=== PATIENT | female | born 1960 | race Caucasian/White ===

== ENCOUNTER 2019-12-07 12:39 | Inpatient (IN) | payer MEDICAID, OTHER, SELFPAY ==
[~2019-12-07] VITALS: Ht 172.7 cm; Wt 74.0 kg
[2019-12-07] MEDS ORDERED: MORPHINE SULFATE 4 MG/ML, 1ML IV PRN (13:30)
[2019-12-07] MEDS ORDERED: ONDANSETRON 2MG/ML, 2ML IVPush ONE (13:30)
[2019-12-07] MEDS ORDERED: SODIUM CHLORIDE FLUSH 10ML SYR IVF ONE (13:30)
[2019-12-07] MEDS ORDERED: SODIUM CHLORIDE 0.9% 1,000ML IVBOLUS ONE (13:30)
[2019-12-07 13:49] LABS: MEAN CORPUSCULAR HEMOGLOBIN 27.7 pg (27.0-34.8); MEAN CORPUSCULAR HGB CONC 32.8 g/dL (32.4-35.8); MEAN CORPUSCULAR VOLUME 84.6 fL (80-100); MEAN PLATELET VOLUME 8.7 fL (7.4-10.4); PLATELET COUNT 239 x10^3/uL (130-400); RED BLOOD COUNT 4.67 x10^6/uL (3.82-5.3); RED CELL DISTRIBUTION WIDTH 13.7 % (9.6-15.2)
[2019-12-07] MEDS ORDERED: ONDANSETRON 2MG/ML, 2ML ONE (13:49)
[2019-12-07] MEDS ORDERED: MORPHINE SULFATE 4 MG/ML, 1ML ONE ×2 (13:49→15:30)
[2019-12-07] MEDS ORDERED: AMPICILLIN/SULBACTAM 3 GM in SODIUM CHLORIDE 0.9% 100 ML IV ONE (14:00)
[2019-12-07 14:01] LABS: ALANINE AMINOTRANSFERASE 26 U/L (12-78); ANION GAP 7 mmol/L (5-15); CALCIUM 9.3 mg/dL (8.5-10.1); CHLORIDE 101 mmol/L (98-107); CREATININE 0.88 mg/dL (0.55-1.02)
[2019-12-07 14:03] LABS: ALKALINE PHOSPHATASE 124 U/L (45-117); BILIRUBIN,TOTAL 0.6 mg/dL (0.2-1.0); TOTAL PROTEIN 8.2 g/dL (6.4-8.2)
[2019-12-07 14:29] LABS: BASOPHILS # (AUTO) 0.05 x10^3/uL (0-0.1); BASOPHILS % (AUTO) 0 % (0-1); EOSINOPHILS # (AUTO) 0.02 x10^3/uL (0-0.4); EOSINOPHILS % (AUTO) 0 % (1-7); LYMPHOCYTES # (AUTO) 1.43 x10^3/uL (1-3.4); LYMPHOCYTES % (AUTO) 7 % (22-44); MD SCAN; MONOCYTES # (AUTO) 1.19 x10^3/uL (0.2-0.8); MONOCYTES % (AUTO) 6 % (2-9); NEUTROPHILS # (AUTO) 19.04 x10^3/uL (1.8-6.8); NEUTROPHILS % (AUTO) 88 % (42-75)
[2019-12-07] MEDS ORDERED: NEOSPORIN OINT. PKT 1 PACKET ONE (14:38)
[2019-12-07] MEDS ORDERED: SITA1TBM4 PO (15:24)
[2019-12-07] MEDS ORDERED: DEXTROSE 4 GM TAB.CHEW PO PRN (15:30)
[2019-12-07] MEDS ORDERED: AMPICILLIN/SULBACTAM 1,500 MG in SODIUM CHLORIDE 0.9% 50 ML IV SCH (15:30)
[2019-12-07] MEDS ORDERED: DEXTROSE 50%, 50ML SYRINGE IVPush PRN (15:30)
[2019-12-07] MEDS ORDERED: DOCUSATE 100 MG CAPSULE PO PRN (15:30)
[2019-12-07] MEDS ORDERED: ACETAMINOPHEN 325 MG TABLET PO PRN (15:30)
[2019-12-07] MEDS ORDERED: ENALAPRILAT 1.25 MG/ML, 2ML IVPush PRN (15:30)
[2019-12-07] MEDS ORDERED: ONDANSETRON 2MG/ML, 2ML IVPush PRN (15:30)
[2019-12-07] MEDS ORDERED: ONDANSETRON ODT 4 MG PO PRN (15:30)
[2019-12-07] MEDS ORDERED: GLUCAGON 1 MG IM PRN (15:30)
[2019-12-07] MEDS ORDERED: VANCOMYCIN PER PHARMACY MC PRN (15:30)
[2019-12-07] MEDS ORDERED: SITA1TAB PO (15:58)
[2019-12-07] MEDS ORDERED: VANCOMYCIN 1,900 MG in SODIUM CHLORIDE 0.9% 250 ML IV ONE (16:00)
[2019-12-07] MEDS ORDERED: PHARMACOKINETIC MONITORING MC PRN (16:00)
[2019-12-07] MEDS: INSULIN LISPRO 100 UNITS/ML, PEN SQ-INSULIN SCH ×2 (17:55→20:46)
[2019-12-07] MEDS: KETOROLAC 30 MG/1 ML IV PRN (17:59)
[2019-12-07] MEDS: LACTATED RINGERS 1,000 ML IV SCH (18:00)
[2019-12-07] MEDS: ENOXAPARIN 40 MG/0.4 ML SQ SCH (18:00)
[2019-12-07 20:07] VITALS: BP 101/66
[2019-12-07] MEDS ORDERED: FAMOTIDINE 40 MG TABLET ONE (20:38)
[2019-12-07] MEDS: AMPICILLIN/SULBACTAM 1,500 MG in SODIUM CHLORIDE 0.9% 50 ML IV SCH (20:45)
[2019-12-07] MEDS: FAMOTIDINE 20 MG TABLET PO SCH (20:46)
[2019-12-07] MEDS: SODIUM CHLORIDE FLUSH 10ML SYR IVF SCH (20:47)
[2019-12-07] MEDS ORDERED: ZOLPIDEM 5MG TABLET PO PRN (21:00)
[2019-12-08 01:15] VITALS: BP 109/71
[2019-12-08] MEDS: LACTATED RINGERS 1,000 ML IV SCH ×2 (02:09→11:25)
[2019-12-08] MEDS: AMPICILLIN/SULBACTAM 1,500 MG in SODIUM CHLORIDE 0.9% 50 ML IV SCH ×4 (02:57→20:19)
[2019-12-08 05:24] LABS: BASOPHILS # (AUTO) 0.04 x10^3/uL (0-0.1); BASOPHILS % (AUTO) 0 % (0-1); EOSINOPHILS # (AUTO) 0.12 x10^3/uL (0-0.4); EOSINOPHILS % (AUTO) 1 % (1-7); LYMPHOCYTES % (AUTO) 10 % (22-44); MD NO; MEAN CORPUSCULAR HGB CONC 33.7 g/dL (32.4-35.8); MEAN CORPUSCULAR VOLUME 83.1 fL (80-100); MEAN PLATELET VOLUME 8.9 fL (7.4-10.4); MONOCYTES # (AUTO) 1.28 x10^3/uL (0.2-0.8); MONOCYTES % (AUTO) 7 % (2-9); NEUTROPHILS % (AUTO) 82 % (42-75); PLATELET COUNT 210 x10^3/uL (130-400); RED BLOOD COUNT 4.18 x10^6/uL (3.82-5.3); RED CELL DISTRIBUTION WIDTH 13.8 % (9.6-15.2)
[2019-12-08 05:29] LABS: ANION GAP 4 mmol/L (5-15); CALCIUM 9.1 mg/dL (8.5-10.1); CHLORIDE 104 mmol/L (98-107)
[2019-12-08 05:40] LABS: CREATININE 0.72 mg/dL (0.55-1.02)
[2019-12-08 07:32] VITALS: BP 98/63
[2019-12-08] MEDS: INSULIN LISPRO 100 UNITS/ML, PEN SQ-INSULIN SCH ×4 (08:33→20:20)
[2019-12-08] MEDS: SENNA/DOCUSATE TABLET PO SCH (08:34)
[2019-12-08] MEDS: SODIUM CHLORIDE FLUSH 10ML SYR IVF SCH ×2 (08:34→20:25)
[2019-12-08] MEDS: KETOROLAC 30 MG/1 ML IV PRN ×2 (08:38→20:22)
[2019-12-08] MEDS ORDERED: FAMOTIDINE 40 MG TABLET ONE ×2 (08:49→11:15)
[2019-12-08] MEDS: FAMOTIDINE 20 MG TABLET PO SCH ×2 (09:25→20:20)
[2019-12-08] MEDS ORDERED: VANCOMYCIN 1,500 MG in SODIUM CHLORIDE 0.9% 250 ML IV SCH (10:00)
[2019-12-08 14:18] VITALS: BP 130/74
[2019-12-08] MEDS: ENOXAPARIN 40 MG/0.4 ML SQ SCH (15:54)
[2019-12-08] MEDS ORDERED: MUPIROCIN OINT 2%, 1 GM APPL. TP SCH (18:00)
[2019-12-08] MEDS: MUPIROCIN OINT 2%, 22GM TP SCH (18:15)
[2019-12-08 19:16] VITALS: BP 121/78
[2019-12-09 00:44] VITALS: BP 114/81
[2019-12-09] MEDS: AMPICILLIN/SULBACTAM 1,500 MG in SODIUM CHLORIDE 0.9% 50 ML IV SCH ×2 (03:10→08:21)
[2019-12-09 05:54] LABS: ANION GAP 6 mmol/L (5-15); CALCIUM 8.9 mg/dL (8.5-10.1); CHLORIDE 106 mmol/L (98-107); CREATININE 0.66 mg/dL (0.55-1.02)
[2019-12-09 06:05] LABS: BASOPHILS # (AUTO) 0.03 x10^3/uL (0-0.1); BASOPHILS % (AUTO) 0 % (0-1); EOSINOPHILS # (AUTO) 0.16 x10^3/uL (0-0.4); EOSINOPHILS % (AUTO) 1 % (1-7); LYMPHOCYTES # (AUTO) 1.46 x10^3/uL (1-3.4); LYMPHOCYTES % (AUTO) 13 % (22-44); MD NO; MEAN CORPUSCULAR HEMOGLOBIN 28.1 pg (27.0-34.8); MEAN CORPUSCULAR HGB CONC 33.6 g/dL (32.4-35.8); MEAN CORPUSCULAR VOLUME 83.7 fL (80-100); MEAN PLATELET VOLUME 8.9 fL (7.4-10.4); MONOCYTES # (AUTO) 0.72 x10^3/uL (0.2-0.8); MONOCYTES % (AUTO) 6 % (2-9); NEUTROPHILS # (AUTO) 9.18 x10^3/uL (1.8-6.8); NEUTROPHILS % (AUTO) 79 % (42-75); PLATELET COUNT 200 x10^3/uL (130-400); RED BLOOD COUNT 4.03 x10^6/uL (3.82-5.3); RED CELL DISTRIBUTION WIDTH 13.7 % (9.6-15.2)
[2019-12-09] MEDS: INSULIN LISPRO 100 UNITS/ML, PEN SQ-INSULIN SCH ×4 (07:00→21:42)
[2019-12-09] MEDS ORDERED: FAMOTIDINE 40 MG TABLET ONE ×2 (07:52→21:00)
[2019-12-09 08:00] VITALS: BP 127/76
[2019-12-09] MEDS: KETOROLAC 30 MG/1 ML IV PRN (08:21)
[2019-12-09] MEDS: MUPIROCIN OINT 2%, 22GM TP SCH ×2 (08:21→18:26)
[2019-12-09] MEDS: SODIUM CHLORIDE FLUSH 10ML SYR IVF SCH ×2 (08:22→21:21)
[2019-12-09] MEDS: SENNA/DOCUSATE TABLET PO SCH (08:22)
[2019-12-09] MEDS: FAMOTIDINE 20 MG TABLET PO SCH ×2 (08:22→21:00)
[2019-12-09 15:24] VITALS: BP 114/76
[2019-12-09] MEDS: ENOXAPARIN 40 MG/0.4 ML SQ SCH (15:30)
[2019-12-09] MEDS: CEPHALEXIN 500 MG CAPSULE PO SCH ×2 (17:00→21:21)
[2019-12-09 21:01] VITALS: BP 125/74
[2019-12-09] MEDS: HYDROcodone/APAP 5/325 TABLET PO PRN (21:21)
[2019-12-10 00:50] VITALS: BP 129/80
[2019-12-10] MEDS: CEPHALEXIN 500 MG CAPSULE PO SCH ×2 (05:35→12:29)
[2019-12-10] MEDS: MUPIROCIN OINT 2%, 22GM TP SCH ×2 (05:35→17:44)
[2019-12-10] MEDS: INSULIN LISPRO 100 UNITS/ML, PEN SQ-INSULIN SCH ×4 (07:00→20:22)
[2019-12-10] MEDS ORDERED: FAMOTIDINE 40 MG TABLET ONE (07:45)
[2019-12-10] MEDS: HYDROcodone/APAP 5/325 TABLET PO PRN ×3 (07:48→20:21)
[2019-12-10] MEDS: SENNA/DOCUSATE TABLET PO SCH (07:49)
[2019-12-10] MEDS: FAMOTIDINE 20 MG TABLET PO SCH ×2 (07:49→20:21)
[2019-12-10] MEDS: SODIUM CHLORIDE FLUSH 10ML SYR IVF SCH ×2 (07:50→20:23)
[2019-12-10 07:56] VITALS: BP 146/73
[2019-12-10 13:35] LABS: HCT (SEDRATE) 34.8 % (34.6-47.8)
[2019-12-10 13:37] LABS: BASOPHILS % (AUTO) 0 % (0-1); EOSINOPHILS % (AUTO) 2 % (1-7); LYMPHOCYTES # (AUTO) 1.48 x10^3/uL (1-3.4); LYMPHOCYTES % (AUTO) 14 % (22-44); MD NO; MEAN CORPUSCULAR HEMOGLOBIN 27.8 pg (27.0-34.8); MEAN CORPUSCULAR HGB CONC 33.3 g/dL (32.4-35.8); MEAN CORPUSCULAR VOLUME 83.6 fL (80-100); MEAN PLATELET VOLUME 8.8 fL (7.4-10.4); MONOCYTES # (AUTO) 0.54 x10^3/uL (0.2-0.8); MONOCYTES % (AUTO) 5 % (2-9); NEUTROPHILS # (AUTO) 8.29 x10^3/uL (1.8-6.8); NEUTROPHILS % (AUTO) 79 % (42-75); PLATELET COUNT 272 x10^3/uL (130-400); RED BLOOD COUNT 4.07 x10^6/uL (3.82-5.3); RED CELL DISTRIBUTION WIDTH 13.5 % (9.6-15.2)
[2019-12-10 13:41] LABS: ALANINE AMINOTRANSFERASE 40 U/L (12-78); ALBUMIN 2.3 g/dL (3.4-5.0); ANION GAP 6 mmol/L (5-15); CALCIUM 9.1 mg/dL (8.5-10.1); CHLORIDE 105 mmol/L (98-107); CREATININE 0.73 mg/dL (0.55-1.02)
[2019-12-10 13:47] LABS: ALKALINE PHOSPHATASE 149 U/L (45-117); BILIRUBIN,TOTAL 0.3 mg/dL (0.2-1.0); TOTAL PROTEIN 7.7 g/dL (6.4-8.2)
[2019-12-10 14:00] VITALS: BP 116/71
[2019-12-10] MEDS ORDERED: GADOTERATE 7.5 MMOL/15 ML SYR ONE (14:57)
[2019-12-10] MEDS: ENOXAPARIN 40 MG/0.4 ML SQ SCH (15:07)
[2019-12-10] MEDS: CEFTRIAXONE PMX 2GM/50ML 50 ML IV SCH (15:07)
[2019-12-10 19:20] VITALS: BP 149/83
[2019-12-11] MEDS: HYDROcodone/APAP 5/325 TABLET PO PRN ×2 (00:38→07:42)
[2019-12-11 01:55] VITALS: BP 168/86
[2019-12-11] MEDS: MUPIROCIN OINT 2%, 22GM TP SCH (05:58)
[2019-12-11] MEDS: INSULIN LISPRO 100 UNITS/ML, PEN SQ-INSULIN SCH ×4 (07:00→22:02)
[2019-12-11 07:32] VITALS: BP 124/76
[2019-12-11] MEDS: SENNA/DOCUSATE TABLET PO SCH (07:41)
[2019-12-11] MEDS: FAMOTIDINE 20 MG TABLET PO SCH ×2 (07:41→22:00)
[2019-12-11 07:42] LABS: MEAN CORPUSCULAR HEMOGLOBIN 27.6 pg (27.0-34.8); MEAN CORPUSCULAR HGB CONC 32.6 g/dL (32.4-35.8); MEAN CORPUSCULAR VOLUME 84.6 fL (80-100); MEAN PLATELET VOLUME 8.3 fL (7.4-10.4); PLATELET COUNT 322 x10^3/uL (130-400); RED BLOOD COUNT 4.55 x10^6/uL (3.82-5.3); RED CELL DISTRIBUTION WIDTH 13.8 % (9.6-15.2)
[2019-12-11] MEDS: SODIUM CHLORIDE FLUSH 10ML SYR IVF SCH ×2 (07:42→22:15)
[2019-12-11 08:00] LABS: CHLORIDE 103 mmol/L (98-107)
[2019-12-11 08:04] LABS: ANION GAP 5 mmol/L (5-15); CALCIUM 9.4 mg/dL (8.5-10.1); CREATININE 0.69 mg/dL (0.55-1.02)
[2019-12-11 08:33] LABS: BASOPHILS # (AUTO) 0.08 x10^3/uL (0-0.1); BASOPHILS % (AUTO) 1 % (0-1); EOSINOPHILS # (AUTO) 0.24 x10^3/uL (0-0.4); EOSINOPHILS % (AUTO) 2 % (1-7); LYMPHOCYTES # (AUTO) 1.88 x10^3/uL (1-3.4); LYMPHOCYTES % (AUTO) 14 % (22-44); MD SCAN; MONOCYTES # (AUTO) 0.99 x10^3/uL (0.2-0.8); MONOCYTES % (AUTO) 8 % (2-9); NEUTROPHILS # (AUTO) 10.01 x10^3/uL (1.8-6.8); NEUTROPHILS % (AUTO) 76 % (42-75)
[2019-12-11] MEDS: CEFTRIAXONE PMX 2GM/50ML 50 ML IV SCH (13:05)
[2019-12-11] MEDS: KETOROLAC 30 MG/1 ML IV PRN ×2 (14:03→22:15)
[2019-12-11 15:10] VITALS: BP 120/74
[2019-12-11] MEDS: ENOXAPARIN 40 MG/0.4 ML SQ SCH (15:17)
[2019-12-11 18:58] VITALS: BP 121/78
[2019-12-12 00:51] VITALS: BP 122/78
[2019-12-12 04:42] LABS: ANION GAP 5 mmol/L (5-15); BASOPHILS # (AUTO) 0.05 x10^3/uL (0-0.1); BASOPHILS % (AUTO) 0 % (0-1); CALCIUM 9.6 mg/dL (8.5-10.1); CHLORIDE 104 mmol/L (98-107); CREATININE 0.76 mg/dL (0.55-1.02); EOSINOPHILS # (AUTO) 0.27 x10^3/uL (0-0.4); EOSINOPHILS % (AUTO) 2 % (1-7); LYMPHOCYTES # (AUTO) 2.08 x10^3/uL (1-3.4); LYMPHOCYTES % (AUTO) 16 % (22-44); MD NO; MEAN CORPUSCULAR HEMOGLOBIN 27.6 pg (27.0-34.8); MEAN CORPUSCULAR VOLUME 83.7 fL (80-100); MEAN PLATELET VOLUME 8.7 fL (7.4-10.4); MONOCYTES % (AUTO) 8 % (2-9); NEUTROPHILS # (AUTO) 9.98 x10^3/uL (1.8-6.8); NEUTROPHILS % (AUTO) 75 % (42-75); PLATELET COUNT 311 x10^3/uL (130-400); RED BLOOD COUNT 4.45 x10^6/uL (3.82-5.3); RED CELL DISTRIBUTION WIDTH 13.3 % (9.6-15.2)
[2019-12-12] MEDS: INSULIN LISPRO 100 UNITS/ML, PEN SQ-INSULIN SCH ×4 (08:07→21:02)
[2019-12-12] MEDS: SENNA/DOCUSATE TABLET PO SCH (08:07)
[2019-12-12] MEDS: KETOROLAC 30 MG/1 ML IV PRN (08:07)
[2019-12-12] MEDS: LORazepam 1MG TABLET PO PRN (08:07)
[2019-12-12] MEDS: SODIUM CHLORIDE FLUSH 10ML SYR IVF SCH ×2 (08:08→21:01)
[2019-12-12] MEDS: FAMOTIDINE 20 MG TABLET PO SCH ×2 (08:09→21:02)
[2019-12-12 08:25] VITALS: BP 115/74
[2019-12-12] MEDS: SULFAMETH./TRIMETHOPRIM DS 800MG/160MG TABLET PO SCH ×2 (11:18→21:02)
[2019-12-12] MEDS: CEFTRIAXONE PMX 2GM/50ML 50 ML IV SCH (12:37)
[2019-12-12 13:26] VITALS: BP 116/72
[2019-12-12] MEDS: ENOXAPARIN 40 MG/0.4 ML SQ SCH (15:43)
[2019-12-12 19:59] VITALS: BP 124/77
[2019-12-12] MEDS ORDERED: IBUPROFEN 600 MG TABLET PO PRN (21:00)
[2019-12-13 00:51] VITALS: BP 121/76
[2019-12-13] MEDS: LORazepam 1MG TABLET PO PRN ×2 (01:16→12:59)
[2019-12-13 05:47] LABS: MEAN CORPUSCULAR HEMOGLOBIN 27.6 pg (27.0-34.8); MEAN CORPUSCULAR HGB CONC 33.4 g/dL (32.4-35.8); MEAN CORPUSCULAR VOLUME 82.7 fL (80-100); MEAN PLATELET VOLUME 8.3 fL (7.4-10.4); PLATELET COUNT 356 x10^3/uL (130-400); RED BLOOD COUNT 4.56 x10^6/uL (3.82-5.3); RED CELL DISTRIBUTION WIDTH 13.6 % (9.6-15.2)
[2019-12-13 05:51] LABS: CALCIUM 9.5 mg/dL (8.5-10.1); CHLORIDE 104 mmol/L (98-107)
[2019-12-13 05:55] LABS: ANION GAP 5 mmol/L (5-15); CREATININE 0.81 mg/dL (0.55-1.02)
[2019-12-13 06:08] LABS: BASOPHILS # (AUTO) 0.08 x10^3/uL (0-0.1); BASOPHILS % (AUTO) 1 % (0-1); EOSINOPHILS # (AUTO) 0.35 x10^3/uL (0-0.4); EOSINOPHILS % (AUTO) 2 % (1-7); LYMPHOCYTES # (AUTO) 2.36 x10^3/uL (1-3.4); LYMPHOCYTES % (AUTO) 15 % (22-44); MD SCAN; MONOCYTES # (AUTO) 1.11 x10^3/uL (0.2-0.8); MONOCYTES % (AUTO) 7 % (2-9); NEUTROPHILS # (AUTO) 12.24 x10^3/uL (1.8-6.8); NEUTROPHILS % (AUTO) 76 % (42-75)
[2019-12-13] MEDS: INSULIN LISPRO 100 UNITS/ML, PEN SQ-INSULIN SCH ×4 (07:00→20:17)
[2019-12-13 08:09] VITALS: BP 123/79
[2019-12-13] MEDS: SULFAMETH./TRIMETHOPRIM DS 800MG/160MG TABLET PO SCH ×2 (08:34→20:17)
[2019-12-13] MEDS: SODIUM CHLORIDE FLUSH 10ML SYR IVF SCH ×2 (08:35→20:18)
[2019-12-13] MEDS: FAMOTIDINE 20 MG TABLET PO SCH ×2 (08:35→20:17)
[2019-12-13] MEDS: SENNA/DOCUSATE TABLET PO SCH (08:35)
[2019-12-13 09:16] LABS: HCT (SEDRATE) 37.7 % (34.6-47.8)
[2019-12-13 12:38] VITALS: BP 123/78
[2019-12-13] MEDS: CEFTRIAXONE PMX 2GM/50ML 50 ML IV SCH (13:00)
[2019-12-13] MEDS: ENOXAPARIN 40 MG/0.4 ML SQ SCH (15:36)
[2019-12-13 16:16] LABS: MICROSCOPIC NOT IND
[2019-12-13 19:20] VITALS: BP 121/76
[2019-12-14 00:26] VITALS: BP 127/75
[2019-12-14 06:35] LABS: BASOPHILS # (AUTO) 0.07 x10^3/uL (0-0.1); BASOPHILS % (AUTO) 1 % (0-1); EOSINOPHILS % (AUTO) 2 % (1-7); LYMPHOCYTES # (AUTO) 2.12 x10^3/uL (1-3.4); LYMPHOCYTES % (AUTO) 15 % (22-44); MD NO; MEAN CORPUSCULAR HEMOGLOBIN 27.9 pg (27.0-34.8); MEAN CORPUSCULAR HGB CONC 33.7 g/dL (32.4-35.8); MEAN CORPUSCULAR VOLUME 82.9 fL (80-100); MEAN PLATELET VOLUME 8.5 fL (7.4-10.4); MONOCYTES # (AUTO) 1.05 x10^3/uL (0.2-0.8); MONOCYTES % (AUTO) 8 % (2-9); NEUTROPHILS # (AUTO) 10.46 x10^3/uL (1.8-6.8); NEUTROPHILS % (AUTO) 75 % (42-75); PLATELET COUNT 348 x10^3/uL (130-400); RED BLOOD COUNT 4.31 x10^6/uL (3.82-5.3); RED CELL DISTRIBUTION WIDTH 13.2 % (9.6-15.2)
[2019-12-14 06:41] LABS: ALBUMIN 2.5 g/dL (3.4-5.0); ANION GAP 4 mmol/L (5-15); CALCIUM 9.2 mg/dL (8.5-10.1); CHLORIDE 103 mmol/L (98-107)
[2019-12-14 06:44] LABS: ALANINE AMINOTRANSFERASE 36 U/L (12-78); ALKALINE PHOSPHATASE 144 U/L (45-117); BILIRUBIN,TOTAL 0.3 mg/dL (0.2-1.0); CREATININE 0.82 mg/dL (0.55-1.02); TOTAL PROTEIN 8.5 g/dL (6.4-8.2)
[2019-12-14] MEDS: INSULIN LISPRO 100 UNITS/ML, PEN SQ-INSULIN SCH ×4 (07:00→20:07)
[2019-12-14 07:12] VITALS: BP 129/76
[2019-12-14] MEDS: SENNA/DOCUSATE TABLET PO SCH (08:25)
[2019-12-14] MEDS: FAMOTIDINE 20 MG TABLET PO SCH ×2 (08:26→20:05)
[2019-12-14] MEDS: SULFAMETH./TRIMETHOPRIM DS 800MG/160MG TABLET PO SCH ×2 (08:26→20:06)
[2019-12-14] MEDS: LORazepam 1MG TABLET PO PRN (08:30)
[2019-12-14] MEDS: SODIUM CHLORIDE FLUSH 10ML SYR IVF SCH ×2 (09:00→20:08)
[2019-12-14] MEDS: GABAPENTIN 100 MG CAPSULE PO SCH ×2 (11:06→20:06)
[2019-12-14] MEDS: CEFTRIAXONE PMX 2GM/50ML 50 ML IV SCH (13:22)
[2019-12-14 14:05] VITALS: BP 117/75
[2019-12-14] MEDS: ENOXAPARIN 40 MG/0.4 ML SQ SCH (17:30)
[2019-12-14 18:49] VITALS: BP 103/74
[2019-12-15 00:42] VITALS: BP 145/75
[2019-12-15] MEDS: LORazepam 1MG TABLET PO PRN ×2 (05:50→20:45)
[2019-12-15] MEDS: IBUPROFEN 600 MG TABLET PO PRN ×2 (05:50→13:03)
[2019-12-15 06:08] LABS: HCT (SEDRATE) 36.5 % (34.6-47.8)
[2019-12-15 06:57] VITALS: BP 132/77
[2019-12-15] MEDS: INSULIN LISPRO 100 UNITS/ML, PEN SQ-INSULIN SCH ×4 (07:00→20:46)
[2019-12-15] MEDS: GABAPENTIN 100 MG CAPSULE PO SCH ×2 (08:00→20:45)
[2019-12-15] MEDS: FAMOTIDINE 20 MG TABLET PO SCH ×2 (08:00→20:45)
[2019-12-15] MEDS: SULFAMETH./TRIMETHOPRIM DS 800MG/160MG TABLET PO SCH ×2 (08:01→20:45)
[2019-12-15] MEDS: SENNA/DOCUSATE TABLET PO SCH (08:02)
[2019-12-15] MEDS: SODIUM CHLORIDE FLUSH 10ML SYR IVF SCH ×2 (08:31→20:44)
[2019-12-15 08:32] LABS: BASOPHILS # (AUTO) 0.05 x10^3/uL (0-0.1); BASOPHILS % (AUTO) 1 % (0-1); EOSINOPHILS # (AUTO) 0.19 x10^3/uL (0-0.4); EOSINOPHILS % (AUTO) 2 % (1-7); LYMPHOCYTES # (AUTO) 1.93 x10^3/uL (1-3.4); LYMPHOCYTES % (AUTO) 16 % (22-44); MD NO; MEAN CORPUSCULAR HEMOGLOBIN 27.4 pg (27.0-34.8); MEAN CORPUSCULAR HGB CONC 32.8 g/dL (32.4-35.8); MEAN CORPUSCULAR VOLUME 83.7 fL (80-100); MEAN PLATELET VOLUME 8.5 fL (7.4-10.4); MONOCYTES # (AUTO) 0.96 x10^3/uL (0.2-0.8); MONOCYTES % (AUTO) 8 % (2-9); NEUTROPHILS # (AUTO) 8.66 x10^3/uL (1.8-6.8); NEUTROPHILS % (AUTO) 74 % (42-75); PLATELET COUNT 366 x10^3/uL (130-400); RED BLOOD COUNT 4.41 x10^6/uL (3.82-5.3); RED CELL DISTRIBUTION WIDTH 13.6 % (9.6-15.2)
[2019-12-15] MEDS ORDERED: GADOTERATE 7.5 MMOL/15 ML SYR ONE (12:23)
[2019-12-15] MEDS: CEFTRIAXONE PMX 2GM/50ML 50 ML IV SCH (13:09)
[2019-12-15 13:15] VITALS: BP 127/83
[2019-12-15] MEDS ORDERED: TRAM50TA2 PO (14:30)
[2019-12-15] MEDS ORDERED: Sulfameth./Trimethoprim Ds PO (14:30)
[2019-12-15] MEDS ORDERED: INSU100I11 SQ-INSULIN (14:48)
[2019-12-15] MEDS ORDERED: GABA-826 PO (14:48)
[2019-12-15] MEDS: ENOXAPARIN 40 MG/0.4 ML SQ SCH (17:54)
[2019-12-15 21:30] VITALS: BP 120/74
[2019-12-16 01:54] VITALS: BP 129/68
[2019-12-16] MEDS: INSULIN LISPRO 100 UNITS/ML, PEN SQ-INSULIN SCH ×2 (07:00→11:23)
[2019-12-16 07:53] VITALS: BP 116/74
[2019-12-16] MEDS: IBUPROFEN 600 MG TABLET PO PRN (08:01)
[2019-12-16] MEDS: SULFAMETH./TRIMETHOPRIM DS 800MG/160MG TABLET PO SCH (08:01)
[2019-12-16] MEDS: SODIUM CHLORIDE FLUSH 10ML SYR IVF SCH (08:01)
[2019-12-16] MEDS: GABAPENTIN 100 MG CAPSULE PO SCH (08:01)
[2019-12-16] MEDS: FAMOTIDINE 20 MG TABLET PO SCH (08:01)
[2019-12-16] MEDS: SENNA/DOCUSATE TABLET PO SCH (08:01)
[2019-12-16] MEDS ORDERED: KETOROLAC 30 MG/1 ML IVPush ONE (09:30)
[2019-12-16] MEDS: LORazepam 1MG TABLET PO PRN (11:09)
[2019-12-16] MEDS ORDERED: CEFD300C37 PO (11:32)
[2019-12-16] MEDS ORDERED: Sulfameth./Trimethoprim Ds PO (11:33)
[2019-12-16] MEDS: CEFTRIAXONE PMX 2GM/50ML 50 ML IV SCH (11:38)
[2019-12-16 14:23] VITALS: BP 120/76
== END 2019-12-16 15:25 | disposition home or self-care (01) | DRG 872 ==
LOC: ED 14:25 → EDIP 14:26 → ED 14:38 → UNDOADMIN 15:10 → EDIP 15:10 → SUATTDRO 15:10 → 3N 16:30 → DCLOUNGE 12-16 15:14
PROVIDERS: ADMIT Hospitalist; ATTEND Internal Medicine
DX: A41.9 Sepsis, unspecified organism (principal); F33.1 Major depressive disorder, recurrent, moderate; L03.115 Cellulitis of right lower limb; E04.2 Nontoxic multinodular goiter; F41.9 Anxiety disorder, unspecified; G47.00 Insomnia, unspecified; E11.65 Type 2 diabetes mellitus with hyperglycemia; S60.519A Abrasion of unspecified hand, initial encounter; B95.5 Unspecified streptococcus as the cause of diseases classified elsewhere; S80.219A Abrasion, unspecified knee, initial encounter; E11.42 Type 2 diabetes mellitus with diabetic polyneuropathy; W18.39XA Other fall on same level, initial encounter; Z79.4 Long term (current) use of insulin; Z80.3 Family history of malignant neoplasm of breast; Z82.49 Family history of ischemic heart disease and other diseases of the circulatory system; Y93.89 Activity, other specified; Y92.89 Other specified places as the place of occurrence of the external cause; Y99.8 Other external cause status; Z90.49 Acquired absence of other specified parts of digestive tract
CPT/HCPCS: 36415; 71045; 80048; 80053; 81003; 82962; 83036; 83605; 84443; 85025; 85651; 86140; 87040; 87070; 87147; 87205; 93005; 93922; 96365; 96375; 99285; G0378; J0295; J0696; J1650; J1885; J2405; J3370; A9575; J1815; J2270; J7030; J7050; J7120

== ENCOUNTER 2020-09-30 15:32 | Emergency (ER) | payer MEDICAID ==
[~2020-09-30] VITALS: Ht 174 cm; Wt 75.7 kg
[~2020-09-30 15:32] MED LIST: CEFD300C37 PO; GABA-826 PO; INSU100I11 SQ-INSULIN; SITA1TAB PO; SITA1TBM4 PO; Sulfameth./Trimethoprim Ds PO; TRAM50TA2 PO
--- NOTE | 2020-09-30 19:53 | NUR ---
ENGINEER FIRST ASSISTANT AT BEDSIDE FOR LAB DRAW. PIV PLACEMENT ATTEMPTED X2 WITHOUT SUCCESS.
[2020-09-30] MEDS ORDERED: AMPICILLIN/SULBACTAM 3 GM in SODIUM CHLORIDE 0.9% 100 ML IV ONE (20:00)
[2020-09-30] MEDS ORDERED: morphine SULFATE 10 MG/ML, 1ML IV ONE (20:00)
[2020-09-30] MEDS ORDERED: ONDANSETRON 2MG/ML, 2ML IVPush ONE (20:00)
[2020-09-30 20:06] LABS: BASOPHILS % (AUTO) 1 % (0-1); EOSINOPHILS % (AUTO) 2 % (1-7); LYMPHOCYTES % (AUTO) 16 % (22-44); MEAN CORPUSCULAR HEMOGLOBIN 28.7 pg (27.0-34.8); MEAN CORPUSCULAR HGB CONC 33.5 g/dL (32.4-35.8); MEAN PLATELET VOLUME 8.5 fL (7.4-10.4); MONOCYTES % (AUTO) 7 % (2-9); NEUTROPHILS % (AUTO) 75 % (42-75); PLATELET COUNT 277 x10^3/uL (130-400); RED BLOOD COUNT 4.77 x10^6/uL (3.82-5.3)
[2020-09-30 20:10] LABS: MD NO
[2020-09-30 20:20] LABS: ALANINE AMINOTRANSFERASE 35 U/L (12-78); ALBUMIN 3.5 g/dL (3.4-5.0); ANION GAP 4 mmol/L (5-15); CHLORIDE 104 mmol/L (98-107); CREATININE 0.75 mg/dL (0.55-1.02)
[2020-09-30 20:22] LABS: ALKALINE PHOSPHATASE 107 U/L (45-117); BILIRUBIN,TOTAL 0.3 mg/dL (0.2-1.0); TOTAL PROTEIN 8.1 g/dL (6.4-8.2)
[2020-09-30] MEDS ORDERED: MORPHINE SULFATE 4 MG/ML, 1ML ONE (20:24)
[2020-09-30] MEDS ORDERED: ONDANSETRON 2MG/ML, 2ML ONE (20:24)
--- NOTE | 2020-09-30 20:34 | NUR ---
PIV PLACED BY TASK RN. 2ND SET BLOOD CX COLLECTED AND SENT TO LAB. MEDS ADMIN PER JUL. 2 SETS BLOOD CX DRAWN PRIOR TO ADMIN. PT RESTING ON [facility]. DEN[place]. PT CONNECTED TO MONITORING.
--- NOTE | 2020-09-30 20:44 | NUR ---
ALL RESULTS ARE BACK AT THIS TIME. CHART UP FOR RECHECK.
--- NOTE | 2020-09-30 21:35 | NUR ---
ERMD AT BEDSIDE TO UPDATE PT ON POC.
[2020-09-30] MEDS ORDERED: NEOSPORIN OINT. PKT 1 PACKET ONE ×2 (22:01→22:30)
[2020-09-30 22:39] VITALS: BP 140/70
== END 2020-09-30 22:42 | disposition home or self-care (01) ==
LOC: ED 16:02
DX: S80.212A Abrasion, left knee, initial encounter (principal); L03.116 Cellulitis of left lower limb; E11.40 Type 2 diabetes mellitus with diabetic neuropathy, unspecified; X58.XXXA Exposure to other specified factors, initial encounter; Y93.89 Activity, other specified; Y92.89 Other specified places as the place of occurrence of the external cause; Y99.8 Other external cause status
CPT/HCPCS: 36415; 73590; 73610; 73630; 80053; 83605; 84145; 85025; 87040; 96365; 96375; 99284; J0295; J2270; J2405

== ENCOUNTER 2020-12-09 21:05 | Emergency (ER) | payer MEDICAID ==
[~2020-12-09] VITALS: Ht 175.3 cm; Wt 75.0 kg
[2020-12-09 21:07] VITALS: BP 103/70
[2020-12-09] MEDS ORDERED: LIDODERM 5% PATCH TD ONE ×2 (21:30→21:36)
[2020-12-09] MEDS ORDERED: DIAZEPAM 5 MG TABLET PO ONE (21:30)
[2020-12-09] MEDS ORDERED: KETOROLAC 30 MG/1 ML IM ONE (21:30)
[2020-12-09] MEDS ORDERED: KETOROLAC 30 MG/1 ML ONE (21:36)
[2020-12-09] MEDS ORDERED: DIAZEPAM 5 MG TABLET ONE (21:36)
--- NOTE | 2020-12-09 21:44 | NUR ---
meds admin as per jul. elmiraa at bedside for pelvic.
[2020-12-09] MEDS ORDERED: CEFTRIAXONE 1,000 MG IM ONE (22:00)
[2020-12-09] MEDS ORDERED: DOXYCYCLINE 100MG TABLET PO ONE (22:00)
[2020-12-09 22:08] LABS: CLUE CELLS NONE SEEN (NONE SEEN); WET PREP WBCS FEW (FEW)
[2020-12-09] MEDS ORDERED: CEFTRIAXONE 1,000 MG ONE (22:09)
[2020-12-09] MEDS ORDERED: DOXYCYCLINE 100MG TABLET ONE (22:09)
--- NOTE | 2020-12-09 22:17 | NUR ---
MEDS ADMIN PER JUL. WARM BLANKET PROVIDED.
[2020-12-09 22:20] LABS: HCG UR SG 1.039 (1.003-1.030); MICROSCOPIC AUTO
[2020-12-09] MEDS ORDERED: FOSFOMYCIN 3 GM PACKET PO ONE (22:40)
--- NOTE | 2020-12-09 22:40 | NUR ---
ALL RESULTS ARE BACK AT THIS TIME. CHART UP FOR RECHECK,.
[2020-12-09] MEDS ORDERED: FOSFOMYCIN 3 GM PACKET ONE (22:47)
--- NOTE | 2020-12-09 22:57 | NUR ---
PRESCRIPTION CLERK LENSES PER JUL. PT TO HAVE FRIEND DRIVE [place].
== END 2020-12-09 22:59 | disposition home or self-care (01) ==
LOC: ED 22:53
DX: S39.012A Strain of muscle, fascia and tendon of lower back, initial encounter (principal); N30.00 Acute cystitis without hematuria; A56.02 Chlamydial vulvovaginitis; A54.02 Gonococcal vulvovaginitis, unspecified; E11.9 Type 2 diabetes mellitus without complications; X58.XXXA Exposure to other specified factors, initial encounter; Y93.89 Activity, other specified; Y92.89 Other specified places as the place of occurrence of the external cause; Y99.8 Other external cause status
CPT/HCPCS: 81001; 81025; 87086; 87210; 87491; 87591; 87808; 96372; 99284; J0696; J1885